=== PATIENT | female | born 1955 | race African-American/Black ===

== ENCOUNTER 2021-09-19 11:05 | Emergency (ER) | payer OTHER ==
[~2021-09-19] VITALS: Ht 177.8 cm; Wt 60.0 kg
[2021-09-19] MEDS ORDERED: MAGNESIUM 2 G PREMIX 50 ML IV STA (11:39)
[2021-09-19] MEDS ORDERED: ALBUTEROL (0.083%) 2.5MG/3ML NEB HHN STA (11:39)
[2021-09-19] MEDS ORDERED: IPRATROPIUM BROMIDE (0.02%) 0.5MG/2.5ML NEB HHN STA (11:39)
[2021-09-19] MEDS ORDERED: METHYLPREDNISOLONE SOD SUCC 125 MG/2 ML VIAL IV STA (11:39)
[2021-09-19 16:30] VITALS: BP 123/82
== END 2021-09-19 16:35 | disposition left against medical advice (07) ==
LOC: ER 11:29
DX: J45.901 Unspecified asthma with (acute) exacerbation (principal)
CPT/HCPCS: 71045; 93005; 94644; 96365; 96375; 99285; J2930; J3475